=== PATIENT | female | born 1955 | race Caucasian/White ===

== ENCOUNTER 2019-05-19 11:46 | Inpatient (IN) | payer MEDICARE ==
[2019-05-19] MEDS: NITROGLYCERIN 2% 1 GM OINT PKT TD (12:02)
[2019-05-19] MEDS ORDERED: NITROGLYCERIN (SL) 0.4 MG TAB SL ×2 (12:30→15:00)
[2019-05-19 12:43] LABS: ADD MAN DIFF? NO
[2019-05-19 12:50] LABS: BASOPHIL # 0.1 10^3/ul (0.0-0.1); BASOPHILS % 0.8 % (0.0-2.0); EOSINOPHILS # 0.3 10^3/ul (0.0-0.5); EOSINOPHILS % 2.4 % (0.0-7.0); LYMPHOCYTES # 2.5 10^3/ul (0.8-2.9); LYMPHOCYTES % 21.9 % (15.0-51.0); MEAN CORPUSCULAR HEMOGLOBIN 26.7 pg (29.0-33.0); MEAN CORPUSCULAR HGB CONC 31.8 g/dl (32.0-37.0); MEAN CORPUSCULAR VOLUME 83.8 fl (82.0-101.0); MEAN PLATELET VOLUME 9.6 fl (7.4-10.4); MONOCYTE # 0.9 10^3/ul (0.3-0.9); NEUTROPHIL # 7.5 10^3/ul (1.6-7.5); NEUTROPHILS % 66.4 % (39.0-77.0); PLATELET COUNT 391 10^3/UL (140-415); RED BLOOD COUNT 5.25 10^6/ul (4.20-5.40); RED CELL DISTRIBUTION WIDTH 15.9 % (11.5-14.5)
[2019-05-19 12:50] LABS: WHITE BLOOD COUNT 11.3 10^3/ul (4.8-10.8)
[2019-05-19 13:04] LABS: ANION GAP 11 (5-13); BLOOD UREA NITROGEN 14 mg/dl (7-20); CALCIUM 9.6 mg/dl (8.4-10.2); CARBON DIOXIDE 24 mmol/L (21-31); CHLORIDE 103 mmol/L (97-110); CREATININE 0.62 mg/dl (0.44-1.00); Estimated GFR > 60 mL/min (>60); GLUCOSE 113 mg/dl (70-220); POTASSIUM 4.2 mmol/L (3.5-5.1); SODIUM 138 mmol/L (135-144)
[2019-05-19 13:06] LABS: ALANINE AMINOTRANSFERASE 55 IU/L (13-69); ALBUMIN 4.3 g/dl (3.3-4.9); ALKALINE PHOSPHATASE 110 IU/L (42-121); ASPARTATE AMINO TRANSFERASE 47 IU/L (15-46); BILIRUBIN,INDIRECT 0.5 mg/dl (0-1.1); BILIRUBIN,TOTAL 0.5 mg/dl (0.2-1.3); LIPASE 75 U/L (23-300); TOTAL PROTEIN 8.3 g/dl (6.1-8.1)
[2019-05-19] MEDS: HYDROmorphONE 2 MG/ML SYG IV ×3 (13:15→20:36)
[2019-05-19 13:16] LABS: TROPONIN-I < 0.012 ng/ml (0.000-0.120)
[2019-05-19] MEDS ORDERED: ACETAMINOPHEN 325 MG TAB PO ×2 (14:30→15:00)
[2019-05-19] MEDS ORDERED: ALBUTEROL HFA 8 GM INHALER INH (15:00)
[2019-05-19] MEDS ORDERED: DOCUSATE SODIUM 100 MG CAP PO (15:00)
[2019-05-19] MEDS ORDERED: HYDROCODONE/APAP (10/325) TAB PO (15:00)
[2019-05-19] MEDS ORDERED: NACL 0.9% 3 ML SYG IV (15:00)
[2019-05-19] MEDS: ENOXAPARIN 40 MG/0.4 ML SYG SC ×2 (15:10→15:22)
[2019-05-19] MEDS: METOCLOPRAMIDE 10 MG INJ IV (15:10)
[2019-05-19] MEDS: HYDROCODONE/APAP (5/325) TAB PO (19:00)
[2019-05-19 19:04] LABS: CREATINE KINASE 167 IU/L (23-200)
[2019-05-19 19:16] LABS: CK INDEX 1.3; TROPONIN-I < 0.012 ng/ml (0.000-0.120)
[2019-05-19] MEDS: ZOLPIDEM 5 MG TAB PO (22:26)
[2019-05-20] MEDS: CARISOPRODOL 350 MG TAB PO ×2 (01:52→15:48)
[2019-05-20 02:18] LABS: TROPONIN-I < 0.012 ng/ml (0.000-0.120)
[2019-05-20] MEDS: PANTOPRAZOLE (EC) 40 MG TAB PO (06:08)
[2019-05-20] MEDS: HYDROmorphONE 2 MG/ML SYG IV ×4 (06:15→19:59)
[2019-05-20 06:20] LABS: ADD MAN DIFF? NO
[2019-05-20 06:36] LABS: WHITE BLOOD COUNT 10.2 10^3/ul (4.8-10.8)
[2019-05-20 06:36] LABS: BASOPHIL # 0.1 10^3/ul (0.0-0.1); BASOPHILS % 0.9 % (0.0-2.0); EOSINOPHILS # 0.5 10^3/ul (0.0-0.5); HEMATOCRIT 41.1 % (37.0-47.0); LYMPHOCYTES # 2.9 10^3/ul (0.8-2.9); LYMPHOCYTES % 28.3 % (15.0-51.0); MEAN CORPUSCULAR HEMOGLOBIN 26.7 pg (29.0-33.0); MEAN CORPUSCULAR HGB CONC 31.6 g/dl (32.0-37.0); MEAN CORPUSCULAR VOLUME 84.6 fl (82.0-101.0); MEAN PLATELET VOLUME 9.9 fl (7.4-10.4); MONOCYTE # 1.1 10^3/ul (0.3-0.9); MONOCYTES % 10.3 % (0.0-11.0); NEUTROPHIL # 5.6 10^3/ul (1.6-7.5); PLATELET COUNT 344 10^3/UL (140-415); RED BLOOD COUNT 4.86 10^6/ul (4.20-5.40); RED CELL DISTRIBUTION WIDTH 15.9 % (11.5-14.5)
[2019-05-20 06:38] LABS: POSITIVE DIFF @See below
[2019-05-20 06:52] LABS: CREATINE KINASE 136 IU/L (23-200)
[2019-05-20 07:05] LABS: CK INDEX 1.3; CK-MB 1.77 ng/ml (0.0-2.4); TROPONIN-I < 0.012 ng/ml (0.000-0.120)
[2019-05-20 07:33] LABS: ALANINE AMINOTRANSFERASE 41 IU/L (13-69); ALBUMIN/GLOBULIN RATIO 1.11; ALKALINE PHOSPHATASE 80 IU/L (42-121); ANION GAP 13 (5-13); ASPARTATE AMINO TRANSFERASE 54 IU/L (15-46); BILIRUBIN,INDIRECT 0.4 mg/dl (0-1.1); BILIRUBIN,TOTAL 0.4 mg/dl (0.2-1.3); BLOOD UREA NITROGEN 14 mg/dl (7-20); CALCIUM 9.4 mg/dl (8.4-10.2); CARBON DIOXIDE 23 mmol/L (21-31); CHLORIDE 103 mmol/L (97-110); CHOL/HDL RATIO 4.9 RATIO; CHOLESTEROL 167 mg/dl (100-200); CREATININE 0.62 mg/dl (0.44-1.00); Estimated GFR > 60 mL/min (>60); GLUCOSE 123 mg/dl (70-220); HDL CHOLESTEROL 34 mg/dl (35-98); LDL CHOLESTEROL,CALCULATED 104 mg/dl; SODIUM 139 mmol/L (135-144); TOTAL PROTEIN 7.6 g/dl (6.1-8.1); TRIGLYCERIDES 145 mg/dl (0-149)
[2019-05-20 08:15] LABS: HEMOGLOBIN A1C 5.5 % (0-5.9)
[2019-05-20] MEDS: ASPIRIN (EC) 81 MG TAB PO (08:39)
[2019-05-20] MEDS: NITROGLYCERIN 0.1 MG/HR PATCH TRANSDERM (08:39)
[2019-05-20] MEDS: DULOXETINE 30 MG CAP DR PO (08:39)
[2019-05-20] MEDS: POTASSIUM CHLORIDE (SR) 8 MEQ CAP PO (08:39)
[2019-05-20] MEDS: CLOPIDOGREL 75 MG TAB PO (08:39)
[2019-05-20] MEDS: HYDROCODONE/APAP (5/325) TAB PO (08:48)
[2019-05-20] MEDS: MAGNESIUM HYDROXIDE 30ML CUP PO (10:21)
[2019-05-20] MEDS ORDERED: ALBUTEROL HFA 8 GM INHALER INH (12:30)
[2019-05-20] MEDS ORDERED: ALBUTEROL/IPRATROPIUM (NEB) 3 ML AMP HHN (14:00)
[2019-05-20] MEDS: METHYLPREDNISOLONE 40 MG INJ IV ×2 (14:37→19:58)
[2019-05-20] MEDS: GUAIFENESIN/CODEINE 5ML CUP PO (14:37)
[2019-05-20] MEDS: AZITHROMYCIN 500 MG in SOD CHLORIDE 0.9% 250 ML IVPB (15:48)
[2019-05-20] MEDS: AMLODIPINE 5 MG TAB PO (16:48)
[2019-05-20] MEDS: METOPROLOL 25 MG TAB PO (16:48)
[2019-05-20] MEDS: ALBUTEROL/IPRATROPIUM (NEB) 3 ML AMP HHN ×3 (17:30→20:24)
[2019-05-20 17:31] LABS: ADD UMIC NO; UR ASCORBIC ACID NEGATIVE (NEGATIVE); UR BILIRUBIN (Dip) NEGATIVE (NEGATIVE); UR BLOOD (Dip) NEGATIVE (NEGATIVE); UR CLARITY CLEAR (CLEAR); UR COLOR YELLOW (YELLOW); UR GLUCOSE (Dip) NEGATIVE (NEGATIVE); UR KETONES (Dip) NEGATIVE (NEGATIVE); UR LEUKOCYTE ESTERASE (Dip) NEGATIVE Leu/ul (NEGATIVE); UR NITRITE (Dip) NEGATIVE (NEGATIVE); UR SPECIFIC GRAVITY (Dip) 1.026 (1.003-1.030); UR TOTAL PROTEIN (Dip) NEGATIVE (NEGATIVE); UR UROBILINOGEN (Dip) 1+ mg/dL (NEGATIVE)
[2019-05-20] MEDS: METOCLOPRAMIDE 10 MG INJ IV (19:59)
[2019-05-20] MEDS: ZOLPIDEM 5 MG TAB PO (21:50)
[2019-05-21] MEDS: ALBUTEROL/IPRATROPIUM (NEB) 3 ML AMP HHN ×7 (01:00→20:34)
[2019-05-21] MEDS: PANTOPRAZOLE (EC) 40 MG TAB PO (06:34)
[2019-05-21] MEDS: METHYLPREDNISOLONE 40 MG INJ IV ×3 (06:34→20:53)
[2019-05-21] MEDS: HYDROmorphONE 2 MG/ML SYG IV (08:31)
[2019-05-21] MEDS: ENOXAPARIN 40 MG/0.4 ML SYG SC (09:00)
[2019-05-21] MEDS: NITROGLYCERIN 0.1 MG/HR PATCH TRANSDERM (09:00)
[2019-05-21] MEDS: DULOXETINE 30 MG CAP DR PO (09:14)
[2019-05-21] MEDS: POTASSIUM CHLORIDE (SR) 8 MEQ CAP PO (09:14)
[2019-05-21] MEDS: ASPIRIN (EC) 81 MG TAB PO (09:14)
[2019-05-21] MEDS: CLOPIDOGREL 75 MG TAB PO (09:14)
[2019-05-21] MEDS: AMLODIPINE 5 MG TAB PO (09:15)
[2019-05-21] MEDS: METOPROLOL 25 MG TAB PO ×2 (09:15→20:54)
[2019-05-21] MEDS: CARISOPRODOL 350 MG TAB PO ×2 (09:31→22:56)
[2019-05-21] MEDS: HYDROCODONE/APAP (5/325) TAB PO (10:20)
[2019-05-21] MEDS: HEPARIN 5,000 UNIT/1 ML VIAL SC ×2 (10:23→20:53)
[2019-05-21] MEDS: LORAZEPAM 0.5 MG TAB PO (11:11)
[2019-05-21] MEDS: HYDROmorphONE 0.5 MG/0.5 ML SYG IV ×3 (13:00→20:55)
[2019-05-21] MEDS: MAGNESIUM HYDROXIDE 30ML CUP PO (14:01)
[2019-05-21] MEDS: AZITHROMYCIN 500 MG in SOD CHLORIDE 0.9% 250 ML IVPB (15:11)
[2019-05-21] MEDS: METOCLOPRAMIDE 10 MG INJ IV (17:07)
[2019-05-21] MEDS: GUAIFENESIN/CODEINE 5ML CUP PO (17:48)
[2019-05-21] MEDS: ZOLPIDEM 5 MG TAB PO (22:56)
[2019-05-22] MEDS: ALBUTEROL/IPRATROPIUM (NEB) 3 ML AMP HHN ×6 (01:00→21:00)
[2019-05-22] MEDS: PANTOPRAZOLE (EC) 40 MG TAB PO (06:14)
[2019-05-22] MEDS: METHYLPREDNISOLONE 40 MG INJ IV ×3 (06:14→20:55)
[2019-05-22] MEDS: HYDROmorphONE 0.5 MG/0.5 ML SYG IV ×4 (06:15→20:57)
[2019-05-22] MEDS: HYDROCODONE/APAP (5/325) TAB PO ×2 (08:12→18:13)
[2019-05-22] MEDS: NITROGLYCERIN 0.1 MG/HR PATCH TRANSDERM (08:54)
[2019-05-22] MEDS: METOPROLOL 25 MG TAB PO ×2 (08:57→20:56)
[2019-05-22] MEDS: CLOPIDOGREL 75 MG TAB PO (08:57)
[2019-05-22] MEDS: DULOXETINE 30 MG CAP DR PO (08:57)
[2019-05-22] MEDS: POTASSIUM CHLORIDE (SR) 8 MEQ CAP PO (08:58)
[2019-05-22] MEDS: AMLODIPINE 2.5 MG TAB PO (08:58)
[2019-05-22] MEDS: ASPIRIN (EC) 81 MG TAB PO (08:58)
[2019-05-22] MEDS: HEPARIN 5,000 UNIT/1 ML VIAL SC ×2 (09:03→20:55)
[2019-05-22] MEDS: LORAZEPAM 0.5 MG TAB PO (11:44)
[2019-05-22] MEDS: TRIMETHOPRIM/SULFAMETHOX (DS) TAB PO ×2 (13:58→20:56)
[2019-05-22] MEDS: AZITHROMYCIN 500 MG in SOD CHLORIDE 0.9% 250 ML IVPB (15:33)
[2019-05-22] MEDS: CARISOPRODOL 350 MG TAB PO (15:33)
[2019-05-22] MEDS: METOCLOPRAMIDE 10 MG INJ IV (20:55)
[2019-05-22] MEDS: ZOLPIDEM 5 MG TAB PO (23:22)
[2019-05-23] MEDS: ALBUTEROL/IPRATROPIUM (NEB) 3 ML AMP HHN ×2 (01:00→05:00)
[2019-05-23] MEDS: HYDROmorphONE 0.5 MG/0.5 ML SYG IV (06:25)
[2019-05-23] MEDS: PANTOPRAZOLE (EC) 40 MG TAB PO (06:50)
[2019-05-23] MEDS: METHYLPREDNISOLONE 40 MG INJ IV (06:50)
== END 2019-05-23 08:16 | disposition home or self-care (01) | DRG 313 ==
LOC: E/R 11:46 → TEL 14:18
DX: R07.89 Other chest pain (principal); I24.9 Acute ischemic heart disease, unspecified; J44.1 Chronic obstructive pulmonary disease with (acute) exacerbation; J45.901 Unspecified asthma with (acute) exacerbation; N39.0 Urinary tract infection, site not specified; I25.119 Atherosclerotic heart disease of native coronary artery with unspecified angina pectoris; I10 Essential (primary) hypertension; E78.5 Hyperlipidemia, unspecified; D72.829 Elevated white blood cell count, unspecified; F32.9 Major depressive disorder, single episode, unspecified; F41.9 Anxiety disorder, unspecified; J20.9 Acute bronchitis, unspecified; G89.4 Chronic pain syndrome; M54.30 Sciatica, unspecified side; I25.2 Old myocardial infarction; Z95.5 Presence of coronary angioplasty implant and graft; B96.20 Unspecified Escherichia coli [E. coli] as the cause of diseases classified elsewhere; Z87.891 Personal history of nicotine dependence
CPT/HCPCS: 71045; 76700; 80048; 80053; 80061; 80076; 81003; 82550; 82553; 83036; 83690; 84443; 84484; 85025; 87086; 93005; 93308; 94640; 94664; 96374; 99285-25; G0378

== ENCOUNTER 2019-05-29 20:25 | Emergency (ER) | payer MEDICARE ==
[2019-05-29 22:16] LABS: ADD MAN DIFF? NO
[2019-05-29 22:19] LABS: ABNORMAL IP MESSAGE 1; BASOPHIL # 0.1 10^3/ul (0.0-0.1); BASOPHILS % 0.6 % (0.0-2.0); EOSINOPHILS # 0.5 10^3/ul (0.0-0.5); EOSINOPHILS % 3.3 % (0.0-7.0); HEMATOCRIT 40.1 % (37.0-47.0); HEMOGLOBIN 12.9 g/dl (12.0-16.0); LYMPHOCYTES # 5.2 10^3/ul (0.8-2.9); LYMPHOCYTES % 34.7 % (15.0-51.0); MEAN CORPUSCULAR HEMOGLOBIN 26.8 pg (29.0-33.0); MEAN CORPUSCULAR HGB CONC 32.2 g/dl (32.0-37.0); MEAN CORPUSCULAR VOLUME 83.2 fl (82.0-101.0); MEAN PLATELET VOLUME 9.6 fl (7.4-10.4); MONOCYTE # 1.6 10^3/ul (0.3-0.9); MONOCYTES % 10.6 % (0.0-11.0); NEUTROPHIL # 7.3 10^3/ul (1.6-7.5); NEUTROPHILS % 48.9 % (39.0-77.0); PLATELET COUNT 455 10^3/UL (140-415); RED BLOOD COUNT 4.82 10^6/ul (4.20-5.40); RED CELL DISTRIBUTION WIDTH 15.8 % (11.5-14.5)
[2019-05-29 22:20] LABS: POSITIVE DIFF @See below
[2019-05-29 22:37] LABS: ANION GAP 10 (5-13); BLOOD UREA NITROGEN 18 mg/dl (7-20); CALCIUM 9.7 mg/dl (8.4-10.2); CARBON DIOXIDE 30 mmol/L (21-31); CHLORIDE 95 mmol/L (97-110); CREATININE 1.16 mg/dl (0.44-1.00); Estimated GFR 47 mL/min (>60); GLUCOSE 103 mg/dl (70-220); POTASSIUM 3.9 mmol/L (3.5-5.1); SODIUM 135 mmol/L (135-144)
[2019-05-29] MEDS: IODIXANOL LOCM 100 ML BTL (22:46)
[2019-05-29] MEDS: SOD CHLORIDE 0.9% 100 ML (22:46)
[2019-05-29 22:49] LABS: TROPONIN-I < 0.012 ng/ml (0.000-0.120)
[2019-05-29 23:00] LABS: LIPASE 68 U/L (23-300)
[2019-05-29] MEDS: SOD CHLORIDE 0.9% 500 ML IV (23:16)
[2019-05-29] MEDS: morphine 4 MG/ML VIAL IV (23:17)
[2019-05-29] MEDS: DIPHENHYDRAMINE 50 MG INJ IV (23:17)
[2019-05-29 23:26] LABS: ADD UMIC YES; UR ASCORBIC ACID NEGATIVE (NEGATIVE); UR BILIRUBIN (Dip) NEGATIVE (NEGATIVE); UR BLOOD (Dip) NEGATIVE (NEGATIVE); UR CLARITY SLIGHTLY CLOUDY (CLEAR); UR COLOR YELLOW (YELLOW); UR GLUCOSE (Dip) NEGATIVE (NEGATIVE); UR HYALINE CAST FEW /HPF (NONE SEEN); UR KETONES (Dip) NEGATIVE (NEGATIVE); UR LEUKOCYTE ESTERASE (Dip) 2+ Leu/ul (NEGATIVE); UR MUCUS FEW /HPF (NONE SEEN); UR NITRITE (Dip) NEGATIVE (NEGATIVE); UR RBC 1 /HPF (0-5); UR SQUAMOUS EPITHELIAL CELL FEW /HPF (FEW); UR TOTAL PROTEIN (Dip) NEGATIVE (NEGATIVE); UR UROBILINOGEN (Dip) NEGATIVE (NEGATIVE); UR WBC 7 /HPF (0-5)
== END 2019-05-30 01:55 | disposition home or self-care (01) ==
LOC: E/R 05-30 01:55
DX: R10.84 Generalized abdominal pain (principal); I25.10 Atherosclerotic heart disease of native coronary artery without angina pectoris; I10 Essential (primary) hypertension; J45.909 Unspecified asthma, uncomplicated; Z79.82 Long term (current) use of aspirin; Z98.61 Coronary angioplasty status
CPT/HCPCS: 36415; 71045; 74177; 80048; 81001; 83690; 84484; 85025; 93005; 96374; 96375; 99285-25

== ENCOUNTER 2019-05-31 20:13 | Inpatient (IN) | payer MEDICARE ==
[2019-05-31] MEDS: KETOROLAC 15 MG INJ IV (21:44)
[2019-05-31] MEDS: ASPIRIN 81 MG TAB PO (21:46)
[2019-05-31 21:51] LABS: ADD MAN DIFF? NO
[2019-05-31 21:53] LABS: WHITE BLOOD COUNT 11.9 10^3/ul (4.8-10.8)
[2019-05-31 21:53] LABS: BASOPHIL # 0.1 10^3/ul (0.0-0.1); BASOPHILS % 0.4 % (0.0-2.0); EOSINOPHILS # 0.4 10^3/ul (0.0-0.5); HEMATOCRIT 35.3 % (37.0-47.0); HEMOGLOBIN 11.4 g/dl (12.0-16.0); LYMPHOCYTES # 3.6 10^3/ul (0.8-2.9); LYMPHOCYTES % 30.1 % (15.0-51.0); MEAN CORPUSCULAR HEMOGLOBIN 26.9 pg (29.0-33.0); MEAN CORPUSCULAR HGB CONC 32.3 g/dl (32.0-37.0); MEAN CORPUSCULAR VOLUME 83.3 fl (82.0-101.0); MEAN PLATELET VOLUME 9.5 fl (7.4-10.4); MONOCYTE # 1.1 10^3/ul (0.3-0.9); MONOCYTES % 9.5 % (0.0-11.0); NEUTROPHIL # 6.7 10^3/ul (1.6-7.5); NEUTROPHILS % 56.2 % (39.0-77.0); PLATELET COUNT 351 10^3/UL (140-415); RED BLOOD COUNT 4.24 10^6/ul (4.20-5.40); RED CELL DISTRIBUTION WIDTH 15.3 % (11.5-14.5)
[2019-05-31] MEDS: OXYCODONE/ACETAMINOPHEN (5/325) TAB PO (21:59)
[2019-05-31 22:08] LABS: ADD UMIC YES; UR ASCORBIC ACID NEGATIVE (NEGATIVE); UR BACTERIA FEW /HPF (NONE SEEN); UR BILIRUBIN (Dip) NEGATIVE (NEGATIVE); UR BLOOD (Dip) NEGATIVE (NEGATIVE); UR CLARITY SLIGHTLY CLOUDY (CLEAR); UR COLOR YELLOW (YELLOW); UR GLUCOSE (Dip) NEGATIVE (NEGATIVE); UR KETONES (Dip) NEGATIVE (NEGATIVE); UR LEUKOCYTE ESTERASE (Dip) 3+ Leu/ul (NEGATIVE); UR NITRITE (Dip) NEGATIVE (NEGATIVE); UR RBC 9 /HPF (0-5); UR SPECIFIC GRAVITY (Dip) 1.009 (1.003-1.030); UR SQUAMOUS EPITHELIAL CELL FEW /HPF (FEW); UR TOTAL PROTEIN (Dip) NEGATIVE (NEGATIVE); UR UROBILINOGEN (Dip) NEGATIVE (NEGATIVE); UR WBC 27 /HPF (0-5)
[2019-05-31 22:24] LABS: ALANINE AMINOTRANSFERASE 42 IU/L (13-69); ALBUMIN 3.6 g/dl (3.3-4.9); ALBUMIN/GLOBULIN RATIO 1.24; ALKALINE PHOSPHATASE 100 IU/L (42-121); ANION GAP 8 (5-13); ASPARTATE AMINO TRANSFERASE 34 IU/L (15-46); BILIRUBIN,INDIRECT 0.3 mg/dl (0-1.1); BILIRUBIN,TOTAL 0.3 mg/dl (0.2-1.3); BLOOD UREA NITROGEN 12 mg/dl (7-20); CARBON DIOXIDE 29 mmol/L (21-31); CHLORIDE 98 mmol/L (97-110); CREATININE 0.75 mg/dl (0.44-1.00); Estimated GFR > 60 mL/min (>60); GLUCOSE 91 mg/dl (70-220); LIPASE 83 U/L (23-300); POTASSIUM 3.4 mmol/L (3.5-5.1); SODIUM 135 mmol/L (135-144); TOTAL PROTEIN 6.5 g/dl (6.1-8.1)
[2019-05-31 22:36] LABS: TROPONIN-I < 0.012 ng/ml (0.000-0.120)
[2019-06-01] MEDS ORDERED: ALBUTEROL 18 GM INHALER INH (02:00)
[2019-06-01] MEDS: METOCLOPRAMIDE 10 MG INJ IV ×2 (02:44→10:49)
[2019-06-01] MEDS: morphine 2 MG INJ IV ×3 (02:45→18:22)
[2019-06-01] MEDS: DIPHENHYDRAMINE 50 MG INJ IV (03:24)
[2019-06-01] MEDS ORDERED: ALBUTEROL HFA 8 GM INHALER INH (04:07)
[2019-06-01 06:39] LABS: ADD MAN DIFF? NO
[2019-06-01 06:43] LABS: WHITE BLOOD COUNT 9.3 10^3/ul (4.8-10.8)
[2019-06-01 06:43] LABS: BASOPHIL # 0.1 10^3/ul (0.0-0.1); BASOPHILS % 0.5 % (0.0-2.0); EOSINOPHILS # 0.3 10^3/ul (0.0-0.5); EOSINOPHILS % 3.3 % (0.0-7.0); HEMATOCRIT 34.3 % (37.0-47.0); HEMOGLOBIN 11.2 g/dl (12.0-16.0); LYMPHOCYTES % 31.9 % (15.0-51.0); MEAN CORPUSCULAR HEMOGLOBIN 27.1 pg (29.0-33.0); MEAN CORPUSCULAR HGB CONC 32.7 g/dl (32.0-37.0); MEAN CORPUSCULAR VOLUME 83.1 fl (82.0-101.0); MEAN PLATELET VOLUME 9.6 fl (7.4-10.4); MONOCYTE # 0.9 10^3/ul (0.3-0.9); MONOCYTES % 9.5 % (0.0-11.0); NEUTROPHILS % 54.2 % (39.0-77.0); PLATELET COUNT 291 10^3/UL (140-415); RED BLOOD COUNT 4.13 10^6/ul (4.20-5.40); RED CELL DISTRIBUTION WIDTH 15.3 % (11.5-14.5)
[2019-06-01 07:01] LABS: ALANINE AMINOTRANSFERASE 46 IU/L (13-69); ALBUMIN 3.1 g/dl (3.3-4.9); ALBUMIN/GLOBULIN RATIO 1.06; ALKALINE PHOSPHATASE 78 IU/L (42-121); ANION GAP 8 (5-13); ASPARTATE AMINO TRANSFERASE 33 IU/L (15-46); BILIRUBIN,INDIRECT 0.4 mg/dl (0-1.1); BILIRUBIN,TOTAL 0.4 mg/dl (0.2-1.3); BLOOD UREA NITROGEN 13 mg/dl (7-20); CALCIUM 8.9 mg/dl (8.4-10.2); CARBON DIOXIDE 26 mmol/L (21-31); CHLORIDE 105 mmol/L (97-110); CREATININE 0.68 mg/dl (0.44-1.00); Estimated GFR > 60 mL/min (>60); GLUCOSE 101 mg/dl (70-220); POTASSIUM 3.6 mmol/L (3.5-5.1); SODIUM 139 mmol/L (135-144)
[2019-06-01 07:14] LABS: TROPONIN-I < 0.012 ng/ml (0.000-0.120)
[2019-06-01] MEDS ORDERED: NON-FORMULARY/PATIENT OWN MED (Salmeterol Xinaf/Fluticasone* (Advair*) 1 INH) INHALATION (09:00)
[2019-06-01] MEDS ORDERED: NON-FORMULARY/PATIENT OWN MED (Lisinopril/Hydrochlorothiazide (Lisinopril-Hctz 20-12.5 mg PO (09:00)
[2019-06-01] MEDS ORDERED: CLOPIDOGREL 75 MG TAB PO (09:00)
[2019-06-01] MEDS: DULOXETINE 30 MG CAP DR PO (09:25)
[2019-06-01] MEDS: POTASSIUM CHLORIDE (SR) 8 MEQ CAP PO (09:27)
[2019-06-01] MEDS: HYDROCHLOROTHIAZIDE 12.5 MG CAP PO (09:27)
[2019-06-01] MEDS: ASPIRIN (EC) 81 MG TAB PO (09:28)
[2019-06-01] MEDS: LISINOPRIL 20 MG TAB PO (09:28)
[2019-06-01] MEDS: HEPARIN 5,000 UNIT/1 ML VIAL SC ×2 (09:35→20:19)
[2019-06-01] MEDS: FLUTICASONE/VILANTEROL 100-25 INH (09:36)
[2019-06-01] MEDS: MEROPENEM 1 GM/50ML(PMX) 50 ML IVPB ×2 (09:36→20:26)
[2019-06-01] MEDS: HYDROCODONE/APAP (10/325) TAB PO ×2 (11:55→20:25)
[2019-06-01 12:39] LABS: TROPONIN-I < 0.012 ng/ml (0.000-0.120)
[2019-06-01 16:27] LABS: CARCINOEMBRYONIC ANTIGEN 4.8 ng/ml (0.0-5.0)
[2019-06-01] MEDS: PANTOPRAZOLE (EC) 40 MG TAB PO (17:06)
[2019-06-01] MEDS: CARISOPRODOL 350 MG TAB PO (17:06)
[2019-06-01 19:48] LABS: TROPONIN-I < 0.012 ng/ml (0.000-0.120)
[2019-06-01] MEDS: ATORVASTATIN 10 MG TAB PO (20:25)
[2019-06-01] MEDS: ZOLPIDEM 5 MG TAB PO (20:27)
[2019-06-01] MEDS ORDERED: NON-FORMULARY/PATIENT OWN MED (Simvastatin* (Zocor*) 10 MG) PO (21:00)
[2019-06-01] MEDS: LORAZEPAM 1 MG TAB PO (21:48)
[2019-06-02] MEDS: morphine 2 MG INJ IV (02:51)
[2019-06-02] MEDS: CARISOPRODOL 350 MG TAB PO ×2 (03:06→20:34)
[2019-06-02] MEDS: DIPHENHYDRAMINE 50 MG INJ IV (03:17)
[2019-06-02] MEDS ORDERED: DIPHENHYDRAMINE 25 MG CAP PO (03:30)
[2019-06-02] MEDS: PANTOPRAZOLE (EC) 40 MG TAB PO ×2 (06:00→17:39)
[2019-06-02] MEDS: MEROPENEM 1 GM/50ML(PMX) 50 ML IVPB ×2 (09:03→20:23)
[2019-06-02] MEDS: LISINOPRIL 20 MG TAB PO (09:04)
[2019-06-02] MEDS: ASPIRIN (EC) 81 MG TAB PO (09:04)
[2019-06-02] MEDS: HYDROCHLOROTHIAZIDE 12.5 MG CAP PO (09:04)
[2019-06-02] MEDS: FLUTICASONE/VILANTEROL 100-25 INH (09:05)
[2019-06-02] MEDS: DULOXETINE 30 MG CAP DR PO (09:05)
[2019-06-02] MEDS: POTASSIUM CHLORIDE (SR) 8 MEQ CAP PO (09:10)
[2019-06-02] MEDS: HYDROCODONE/APAP (10/325) TAB PO (09:11)
[2019-06-02] MEDS: KETOROLAC 15 MG INJ IV ×2 (09:12→21:00)
[2019-06-02] MEDS: HEPARIN 5,000 UNIT/1 ML VIAL SC ×2 (09:22→20:28)
[2019-06-02] MEDS: METOCLOPRAMIDE 10 MG INJ IV (10:25)
[2019-06-02] MEDS: LORAZEPAM 1 MG TAB PO (10:47)
[2019-06-02 10:50] LABS: ADD MAN DIFF? NO
[2019-06-02 10:56] LABS: WHITE BLOOD COUNT 9.4 10^3/ul (4.8-10.8)
[2019-06-02 10:56] LABS: BASOPHIL # 0.1 10^3/ul (0.0-0.1); BASOPHILS % 0.6 % (0.0-2.0); EOSINOPHILS # 0.3 10^3/ul (0.0-0.5); EOSINOPHILS % 3.2 % (0.0-7.0); HEMATOCRIT 35.6 % (37.0-47.0); HEMOGLOBIN 11.2 g/dl (12.0-16.0); LYMPHOCYTES # 2.1 10^3/ul (0.8-2.9); LYMPHOCYTES % 22.8 % (15.0-51.0); MEAN CORPUSCULAR HEMOGLOBIN 26.5 pg (29.0-33.0); MEAN CORPUSCULAR HGB CONC 31.5 g/dl (32.0-37.0); MEAN CORPUSCULAR VOLUME 84.4 fl (82.0-101.0); MONOCYTE # 0.7 10^3/ul (0.3-0.9); MONOCYTES % 7.8 % (0.0-11.0); NEUTROPHIL # 6.1 10^3/ul (1.6-7.5); PLATELET COUNT 271 10^3/UL (140-415); RED BLOOD COUNT 4.22 10^6/ul (4.20-5.40); RED CELL DISTRIBUTION WIDTH 15.7 % (11.5-14.5)
[2019-06-02 11:19] LABS: ANION GAP 6 (5-13); BLOOD UREA NITROGEN 11 mg/dl (7-20); CALCIUM 8.5 mg/dl (8.4-10.2); CARBON DIOXIDE 28 mmol/L (21-31); CHLORIDE 105 mmol/L (97-110); CREATININE 0.74 mg/dl (0.44-1.00); Estimated GFR > 60 mL/min (>60); GLUCOSE 97 mg/dl (70-220); POTASSIUM 3.7 mmol/L (3.5-5.1); SODIUM 139 mmol/L (135-144)
[2019-06-02 11:23] LABS: MAGNESIUM 1.9 mg/dl (1.7-2.5)
[2019-06-02 11:23] LABS: PHOSPHORUS 3.4 mg/dl (2.5-4.9)
[2019-06-02] MEDS: ATORVASTATIN 10 MG TAB PO (20:23)
[2019-06-02] MEDS: ZOLPIDEM 5 MG TAB PO (20:34)
[2019-06-03] MEDS: PANTOPRAZOLE (EC) 40 MG TAB PO ×2 (05:30→17:27)
[2019-06-03] MEDS: HYDROCODONE/APAP (10/325) TAB PO ×3 (06:30→20:29)
[2019-06-03] MEDS: HYDROCHLOROTHIAZIDE 12.5 MG CAP PO (09:00)
[2019-06-03] MEDS: DULOXETINE 30 MG CAP DR PO (09:00)
[2019-06-03] MEDS: ASPIRIN (EC) 81 MG TAB PO (09:00)
[2019-06-03] MEDS: POTASSIUM CHLORIDE (SR) 8 MEQ CAP PO (09:00)
[2019-06-03] MEDS: HEPARIN 5,000 UNIT/1 ML VIAL SC ×2 (09:00→20:30)
[2019-06-03] MEDS: LISINOPRIL 20 MG TAB PO (09:00)
[2019-06-03] MEDS: MEROPENEM 1 GM/50ML(PMX) 50 ML IVPB ×2 (09:01→20:29)
[2019-06-03] MEDS: FLUTICASONE/VILANTEROL 100-25 INH (09:02)
[2019-06-03] MEDS: METOCLOPRAMIDE 10 MG INJ IV (09:03)
[2019-06-03] MEDS: KETOROLAC 15 MG INJ IV (09:05)
[2019-06-03] MEDS: HYDROmorphONE 0.5 MG/0.5 ML SYG IV ×3 (10:17→21:25)
[2019-06-03] MEDS ORDERED: PROPOFOL 20 ML (15:01)
[2019-06-03] MEDS ORDERED: ETOMIDATE 20 MG INJ (15:01)
[2019-06-03] MEDS ORDERED: DIPHENHYDRAMINE 50 MG INJ (15:47)
[2019-06-03] MEDS: DIPHENHYDRAMINE 50 MG INJ IV (15:50)
[2019-06-03] MEDS: CARISOPRODOL 350 MG TAB PO (17:29)
[2019-06-03] MEDS: ATORVASTATIN 10 MG TAB PO ×2 (20:27→20:29)
[2019-06-03] MEDS: ZOLPIDEM 5 MG TAB PO (22:45)
[2019-06-04] MEDS: METOCLOPRAMIDE 10 MG INJ IV (01:37)
[2019-06-04] MEDS: HYDROmorphONE 0.5 MG/0.5 ML SYG IV (03:03)
[2019-06-04] MEDS: DIPHENHYDRAMINE 50 MG INJ IV (03:30)
[2019-06-04] MEDS: PANTOPRAZOLE (EC) 40 MG TAB PO ×2 (05:55→18:00)
[2019-06-04] MEDS: HYDROCODONE/APAP (10/325) TAB PO ×3 (06:01→18:01)
[2019-06-04 06:56] LABS: ADD MAN DIFF? NO
[2019-06-04 07:00] LABS: WHITE BLOOD COUNT 8.7 10^3/ul (4.8-10.8)
[2019-06-04 07:00] LABS: BASOPHIL # 0.1 10^3/ul (0.0-0.1); BASOPHILS % 0.7 % (0.0-2.0); EOSINOPHILS # 0.4 10^3/ul (0.0-0.5); EOSINOPHILS % 4.2 % (0.0-7.0); HEMATOCRIT 30.7 % (37.0-47.0); HEMOGLOBIN 9.7 g/dl (12.0-16.0); LYMPHOCYTES # 2.2 10^3/ul (0.8-2.9); LYMPHOCYTES % 25.1 % (15.0-51.0); MEAN CORPUSCULAR HEMOGLOBIN 26.5 pg (29.0-33.0); MEAN CORPUSCULAR HGB CONC 31.6 g/dl (32.0-37.0); MEAN CORPUSCULAR VOLUME 83.9 fl (82.0-101.0); MEAN PLATELET VOLUME 9.6 fl (7.4-10.4); MONOCYTE # 0.6 10^3/ul (0.3-0.9); MONOCYTES % 6.8 % (0.0-11.0); NEUTROPHIL # 5.4 10^3/ul (1.6-7.5); NEUTROPHILS % 62.6 % (39.0-77.0); PLATELET COUNT 250 10^3/UL (140-415); RED BLOOD COUNT 3.66 10^6/ul (4.20-5.40); RED CELL DISTRIBUTION WIDTH 15.7 % (11.5-14.5)
[2019-06-04] MEDS ORDERED: POLYETHYLENE GLYCOL 17 GM PACKET PO (07:00)
[2019-06-04 07:37] LABS: ANION GAP 5 (5-13); BLOOD UREA NITROGEN 15 mg/dl (7-20); CALCIUM 8.7 mg/dl (8.4-10.2); CARBON DIOXIDE 30 mmol/L (21-31); CHLORIDE 106 mmol/L (97-110); CREATININE 0.71 mg/dl (0.44-1.00); Estimated GFR > 60 mL/min (>60); GLUCOSE 127 mg/dl (70-220); PHOSPHORUS 4.6 mg/dl (2.5-4.9); POTASSIUM 3.6 mmol/L (3.5-5.1); SODIUM 141 mmol/L (135-144)
[2019-06-04] MEDS: FLUTICASONE/VILANTEROL 100-25 INH (09:00)
[2019-06-04] MEDS: SENNA TAB PO ×2 (09:00→20:41)
[2019-06-04] MEDS: DULOXETINE 30 MG CAP DR PO (09:00)
[2019-06-04] MEDS: POTASSIUM CHLORIDE (SR) 8 MEQ CAP PO (09:00)
[2019-06-04] MEDS: LISINOPRIL 20 MG TAB PO (09:00)
[2019-06-04] MEDS: ASPIRIN (EC) 81 MG TAB PO (09:00)
[2019-06-04] MEDS: HEPARIN 5,000 UNIT/1 ML VIAL SC ×2 (09:00→20:43)
[2019-06-04] MEDS: MEROPENEM 1 GM/50ML(PMX) 50 ML IVPB ×2 (09:01→20:40)
[2019-06-04] MEDS: HYDROCHLOROTHIAZIDE 12.5 MG CAP PO (09:01)
[2019-06-04] MEDS: CARISOPRODOL 350 MG TAB PO ×2 (11:45→22:18)
[2019-06-04] MEDS: traMADol 50 MG TAB PO (20:41)
[2019-06-04] MEDS: ZOLPIDEM 5 MG TAB PO (20:41)
[2019-06-04] MEDS: ATORVASTATIN 10 MG TAB PO (20:41)
[2019-06-05] MEDS: PANTOPRAZOLE (EC) 40 MG TAB PO (05:12)
[2019-06-05] MEDS: HYDROCODONE/APAP (10/325) TAB PO (05:13)
[2019-06-05] MEDS: SENNA TAB PO (08:55)
[2019-06-05] MEDS: DULOXETINE 30 MG CAP DR PO (08:55)
[2019-06-05] MEDS: ASPIRIN (EC) 81 MG TAB PO (08:55)
[2019-06-05] MEDS: POTASSIUM CHLORIDE (SR) 8 MEQ CAP PO (08:55)
[2019-06-05] MEDS: CARISOPRODOL 350 MG TAB PO (08:56)
[2019-06-05] MEDS: LISINOPRIL 20 MG TAB PO (08:56)
[2019-06-05] MEDS: HYDROCHLOROTHIAZIDE 12.5 MG CAP PO (08:56)
[2019-06-05] MEDS: traMADol 50 MG TAB PO (08:57)
[2019-06-05] MEDS: MEROPENEM 1 GM/50ML(PMX) 50 ML IVPB (08:57)
[2019-06-05] MEDS: FLUTICASONE/VILANTEROL 100-25 INH (08:58)
[2019-06-05] MEDS: HEPARIN 5,000 UNIT/1 ML VIAL SC (08:58)
== END 2019-06-05 15:42 | disposition home or self-care (01) | DRG 690 ==
LOC: TEL 22:43 → E/R 20:13
PROC: 0DB68ZX Excision of Stomach, Via Natural or Artificial Opening Endoscopic, Diagnostic (ICD-10-PCS; principal; 2019-06-03 10:00)
DX: N39.0 Urinary tract infection, site not specified (principal); K29.00 Acute gastritis without bleeding; K44.9 Diaphragmatic hernia without obstruction or gangrene; F41.9 Anxiety disorder, unspecified; F32.9 Major depressive disorder, single episode, unspecified; J44.9 Chronic obstructive pulmonary disease, unspecified; I10 Essential (primary) hypertension; I25.10 Atherosclerotic heart disease of native coronary artery without angina pectoris; I25.2 Old myocardial infarction; E78.5 Hyperlipidemia, unspecified; L27.0 Generalized skin eruption due to drugs and medicaments taken internally; G89.4 Chronic pain syndrome; Z90.710 Acquired absence of both cervix and uterus; Z95.5 Presence of coronary angioplasty implant and graft; Z87.891 Personal history of nicotine dependence; Z79.82 Long term (current) use of aspirin; Z82.49 Family history of ischemic heart disease and other diseases of the circulatory system; Z98.1 Arthrodesis status; Z79.02 Long term (current) use of antithrombotics/antiplatelets; Z86.718 Personal history of other venous thrombosis and embolism; T40.2X5A Adverse effect of other opioids, initial encounter; Y92.230 Patient room in hospital as the place of occurrence of the external cause
CPT/HCPCS: 36415; 71045; 74177; 80048; 80053; 81001; 82378; 83690; 83735; 84100; 84443; 84484; 85025; 87081; 87086; 88305; 88312; 93005; 96374; 96375; 97161; 99285-25